=== PATIENT | male | born 1975 | race Caucasian/White ===

== ENCOUNTER 2021-11-06 09:46 | Emergency (ER) | payer MEDICARE, MEDICAID ==
[~2021-11-06] VITALS: Ht 177.8 cm; Wt 90.9 kg
[2021-11-06 10:45] LABS: GLUCOSE,POINT OF CARE 77 MG/DL (70-110)
[2021-11-06 11:55] LABS: BASOPHILS % (AUTO) 0.5 % (0.0-2.0); HEMATOCRIT 36.9 % (41-53); HEMOGLOBIN 12.3 g/dL (13.5-17.5); LYMPHOCYTES # (AUTO) 1.5 K/uL (1.0-4.8); LYMPHOCYTES % (AUTO) 11.2 % (22.0-44.0); MEAN CORPUSCULAR HEMOGLOBIN 29.2 pg (26.0-34.0); MEAN CORPUSCULAR HGB CONC 33.2 G/dL (31.0-37.0); MEAN CORPUSCULAR VOLUME 88 fL (80-100); MONOCYTES # (AUTO) 0.8 K/uL (0.1-1.0); NEUTROPHILS # (AUTO) 10.9 K/uL (1.8-7.7); NEUTROPHILS % (AUTO) 81.3 % (40.0-70.0); PLATELET COUNT (AUTO) 238 K/uL (150-450); RED CELL DISTRIBUTION WIDTH 13.9 % (11.5-14.5)
[2021-11-06 12:09] LABS: ANION GAP 11 mmol/L (8-16); CALCIUM, TOTAL 8.5 mg/dL (8.8-10.5); CARBON DIOXIDE 28 mmol/L (22-29); CHLORIDE 105 mmol/L (98-107); CREATININE 1.09 mg/dL (0.60-1.30); GLOMERULAR FILTR. RATE CALC > 60 mL/min (>60); GLUCOSE,RANDOM 75 mg/dL (70-110); POTASSIUM 3.8 mmol/L (3.5-5.1); SODIUM SERUM 144 mmol/L (136-145); UREA NITROGEN, BLOOD 5 mg/dL (7-18)
[2021-11-06 12:23] LABS: ALANINE AMINOTRANSFERASE 31 U/L (12-78); ALBUMIN 2.9 g/dL (3.4-5.0); ALKALINE PHOSPHATASE 108 U/L (46-116); ASPARTATE AMINOTRANSFERASE 25 U/L (15-37); BILIRUBIN,TOTAL 0.6 mg/dL (0.1-1.0); TOTAL PROTEIN, SERUM 6.6 g/dL (6.4-8.2)
[2021-11-06 15:15] VITALS: BP 116/75
== END 2021-11-06 15:52 | disposition home or self-care (01) ==
LOC: EMS 09:51
DX: G40.909 Epilepsy, unspecified, not intractable, without status epilepticus (principal); W13.3XXA Fall through floor, initial encounter; Y93.89 Activity, other specified; Y92.89 Other specified places as the place of occurrence of the external cause; Y99.8 Other external cause status
CPT/HCPCS: 99284; 70450; 80053; 82962; 85025; 36415; 72125; G0480

== ENCOUNTER 2024-09-17 18:32 | Emergency (ER) | payer MEDICAID, MEDICARE ==
[~2024-09-17] VITALS: Ht 177.8 cm; Wt 77.3 kg
[2024-09-17 19:47] VITALS: TEMP 98.4
[2024-09-17 20:40] LABS: BASOPHILS % (AUTO) 0.9 % (0.0-2.0); HEMATOCRIT 41.6 % (41-53); HEMOGLOBIN 13.8 g/dL (13.5-17.5); LYMPHOCYTES # (AUTO) 1.8 K/uL (1.0-4.8); LYMPHOCYTES % (AUTO) 18.3 % (22.0-44.0); MEAN CORPUSCULAR HEMOGLOBIN 29.1 pg (26.0-34.0); MEAN CORPUSCULAR HGB CONC 33.3 G/dL (31.0-37.0); MEAN CORPUSCULAR VOLUME 88 fL (80-100); MONOCYTES # (AUTO) 0.8 K/uL (0.1-1.0); MONOCYTES % (AUTO) 8.3 % (2.0-9.0); NEUTROPHILS % (AUTO) 71.5 % (40.0-70.0); PLATELET COUNT (AUTO) 315 K/uL (150-450); RED BLOOD CELL COUNT(AUTO) 4.75 MIL/uL (4.50-5.90); RED CELL DISTRIBUTION WIDTH 13.7 % (11.5-14.5); WHITE BLOOD COUNT (AUTO) 9.8 K/uL (4.5-11.0)
[2024-09-17 20:53] LABS: ANION GAP 5 mmol/L (8-16); CALCIUM, TOTAL 9.5 mg/dL (8.8-10.5); CARBON DIOXIDE 29 mmol/L (22-29); CHLORIDE 105 mmol/L (98-107); CREATININE 1.05 mg/dL (0.60-1.30); GLOMERULAR FILTR. RATE CALC > 60 mL/min (>60); GLUCOSE,RANDOM 81 mg/dL (70-110); POTASSIUM 5.6 mmol/L (3.5-5.1); SODIUM SERUM 139 mmol/L (136-145); UREA NITROGEN, BLOOD 12 mg/dL (7-18)
[2024-09-17] MEDS: LevETIRAcetam 750 MG in DEXTROSE 5%-WATER 100 ML IV ONE (21:12)
[2024-09-17] MEDS: SODIUM CHLORIDE 0.9% 1,000 ML IV ONE (21:12)
[2024-09-17] MEDS: MORPHINE SULFATE 2 MG/ML SYRINGE IVP ONE (22:04)
[2024-09-17 23:07] VITALS: BP 121/69; PULSE 77; RESP 20; O2SAT 100
[2024-09-17 23:16] LABS: APPEARANCE,URINE CLEAR (CLEAR); BILIRUBIN,URINE NEGATIVE (NEGATIVE); COLOR,URINE YELLOW (YELLOW); GLUCOSE, URINE (UA) NEGATIVE (NEGATIVE); KETONES,URINE NEGATIVE (NEGATIVE); LEUKOCYTE ESTERASE ,URINE NEGATIVE (NEGATIVE); NITRATE,URINE NEGATIVE (NEGATIVE); OCCULT BLOOD,URINE NEGATIVE (NEGATIVE); PH,URINE 7.5 (5.0-8.0); PH,URINE DRUG SCREEN 7.5 (5.0-8.0); PROTEIN,URINE TRACE mg/dL (NEGATIVE); SPECIFIC GRAVITIY, URINE 1.028 (1.003-1.030); UROBILINOGEN,URINE <=1.0 mg/dL (<=1.0)
[2024-09-17 23:22] LABS: ALCOHOL, URINE DRUG SCREEN NEGATIVE (NEGATIVE); AMPHET/METH SCREEN,URINE NEGATIVE (NEGATIVE); BARBITURATE SCREEN, URINE NEGATIVE (NEGATIVE); BENZODIAZEPINES SCREEN,URINE NEGATIVE (NEGATIVE); CANNABINOID SCREEN,URINE POSITIVE (NEGATIVE); COCAINE SCREEN,URINE NEGATIVE (NEGATIVE); METHADONE SCREEN, URINE NEGATIVE (NEGATIVE); OPIATE SCREEN,URINE POSITIVE (NEGATIVE); PHENCYCLIDINE SCREEN,URINE NEGATIVE (NEGATIVE)
== END 2024-09-18 00:41 | disposition home or self-care (01) ==
LOC: EMS 18:32
DX: G40.909 Epilepsy, unspecified, not intractable, without status epilepticus (principal)
CPT/HCPCS: 99284; 96374; 70450; 96361; 96375; 80048; 81003; 85025; 36415; 80307; J0712; G0480; J2270; J7060; J7030

== ENCOUNTER 2024-12-04 17:33 | Inpatient (IN) | payer MEDICARE ==
[~2024-12-04] VITALS: Ht 177.8 cm; Wt 77.4 kg
[2024-12-04] MEDS: LevETIRAcetam 1,000 MG in DEXTROSE 5%-WATER 100 ML IV ONE (17:51)
[2024-12-04 18:05] LABS: PLATELET COUNT (AUTO) 353 K/uL (150-450); RED BLOOD CELL COUNT(AUTO) 4.55 MIL/uL (4.50-5.90); RED CELL DISTRIBUTION WIDTH 16.6 % (11.5-14.5); WHITE BLOOD COUNT (AUTO) 24.4 K/uL (4.5-11.0)
[2024-12-04 18:23] LABS: CALCIUM, TOTAL 9.7 mg/dL (8.8-10.5); CREATININE 1.90 mg/dL (0.60-1.30); GLOMERULAR FILTR. RATE CALC 38 mL/min (>60); GLUCOSE,RANDOM 108 mg/dL (70-110); SODIUM SERUM 146 mmol/L (136-145); UREA NITROGEN, BLOOD 20 mg/dL (7-18)
[2024-12-04 18:27] LABS: ASPARTATE AMINOTRANSFERASE 70 U/L (15-37); TOTAL PROTEIN, SERUM 7.7 g/dL (6.4-8.2)
[2024-12-04] MEDS: SODIUM CHLORIDE 0.9% 2,000 ML IV ONE (18:28)
[2024-12-04 18:30] LABS: ALCOHOL, BLOOD (SERUM) < 3 mg/dL (0-10); CREATINE KINASE, TOTAL ONLY 1851 U/L (39-308)
[2024-12-04 18:37] LABS: TROPONIN I-HIGH SENSITIVITY 147 ng/L (<76)
[2024-12-04 18:44] LABS: BAND NEUTROPHILS % (MANUAL) 5 % (0-5); LYMPHOCYTES % (MANUAL) 5 % (22-44); MONOCYTES % (MANUAL) 8 % (2-9); SEGMENTED NEUTROPHILS % 82 % (40-70)
[2024-12-04] MEDS ORDERED: ONDANSETRON HCL 4 MG/2 ML VIAL IVP PRN (19:15)
[2024-12-04] MEDS: 1: MAGNESIUM SULFATE 2 GM, MVI, ADULT NO.1 WITH VIT K 10 ML, THIAMINE 100 MG, FOLIC ACID IV SCH (20:06)
[2024-12-04] MEDS: AMPICILLIN SODIUM/SULBACTAM NA 3 GM in SODIUM CHLORIDE 0.9% 100 ML IV ONE (20:07)
[2024-12-04] MEDS: DOCUSATE SODIUM 100 MG CAPSULE PO SCH (21:00)
[2024-12-04 21:10] LABS: TROPONIN I-HIGH SENSITIVITY 173 ng/L (<76)
[2024-12-04 21:22] VITALS: BP 143/89; PULSE 90; RESP 20; TEMP 99.7; O2SAT 99
[2024-12-05] MEDS: AMPICILLIN SODIUM/SULBACTAM NA 3 GM in SODIUM CHLORIDE 0.9% 100 ML IV SCH (01:39)
[2024-12-05] MEDS: HEPARIN SODIUM,PORCINE 5,000 UNITS/ML VIAL SQ SCH (01:39)
[2024-12-05 04:34] VITALS: BP 139/80; PULSE 86; RESP 18; TEMP 98.2; O2SAT 97
[2024-12-05 05:54] LABS: PLATELET COUNT (AUTO) 326 K/uL (150-450); RED BLOOD CELL COUNT(AUTO) 4.20 MIL/uL (4.50-5.90); RED CELL DISTRIBUTION WIDTH 16.9 % (11.5-14.5); WHITE BLOOD COUNT (AUTO) 15.4 K/uL (4.5-11.0)
[2024-12-05] MEDS: LevETIRAcetam 1,000 MG in DEXTROSE 5%-WATER 100 ML IV SCH (06:19)
[2024-12-05 06:55] LABS: CALCIUM, TOTAL 8.9 mg/dL (8.8-10.5); CREATININE 1.39 mg/dL (0.60-1.30); GLOMERULAR FILTR. RATE CALC 55 mL/min (>60); GLUCOSE,RANDOM 100 mg/dL (70-110); SODIUM SERUM 145 mmol/L (136-145); UREA NITROGEN, BLOOD 19 mg/dL (7-18)
[2024-12-05 06:59] LABS: TROPONIN I-HIGH SENSITIVITY 103 ng/L (<76)
[2024-12-05 07:41] VITALS: BP 148/87; RESP 18; O2SAT 96
[2024-12-05] MEDS: FAMOTIDINE 20 MG TABLET PO SCH (07:57)
[2024-12-05 11:46] VITALS: BP 135/91; PULSE 85; RESP 18; TEMP 98.2; O2SAT 96
[2024-12-05 16:04] VITALS: BP 134/79; PULSE 78; RESP 18; TEMP 98.4; O2SAT 97
[2024-12-05] MEDS: LORazepam 2 MG/ML VIAL IVP PRN (16:16)
[2024-12-05 20:14] VITALS: BP 135/68; PULSE 74; RESP 18; TEMP 98.1; O2SAT 98
[2024-12-05] MEDS: VANCOMYCIN 1.75GM/WATER(PEG) 350 ML IV ONE (22:05)
[2024-12-06 00:29] VITALS: BP 121/82; PULSE 63; RESP 17; TEMP 98.1; O2SAT 94
[2024-12-06 04:48] VITALS: BP 140/91; PULSE 87; RESP 17; TEMP 98.8; O2SAT 98
[2024-12-06 06:44] LABS: CALCIUM, TOTAL 8.4 mg/dL (8.8-10.5); CREATININE 1.08 mg/dL (0.60-1.30); GLOMERULAR FILTR. RATE CALC > 60 mL/min (>60); GLUCOSE,RANDOM 87 mg/dL (70-110); SODIUM SERUM 143 mmol/L (136-145); UREA NITROGEN, BLOOD 13 mg/dL (7-18)
[2024-12-06 08:00] VITALS: BP 133/87; PULSE 80; RESP 18; TEMP 99.7; O2SAT 98
[2024-12-06] MEDS: ACETAMINOPHEN 325 MG TABLET PO PRN (08:29)
[2024-12-06] MEDS: VANCOMYCIN 1GM/WATER(PEG/NADA) 200 ML IV SCH (10:16)
[2024-12-06 12:00] VITALS: BP 135/88; PULSE 91; RESP 18; TEMP 98.5; O2SAT 97
[2024-12-06] MEDS: RINGERS SOLUTION,LACTATED 1,000 ML IV SCH (12:30)
[2024-12-06] MEDS ORDERED: SODIUM CHLORIDE 0.9% 500 ML IV ONE (13:46)
[2024-12-06 15:10] VITALS: BP 169/97; PULSE 89; RESP 20; TEMP 98.7; O2SAT 99
[2024-12-06] MEDS: LevETIRAcetam 1,500 MG in DEXTROSE 5%-WATER 100 ML IV SCH (17:45)
[2024-12-06] MEDS: HYDROCODONE/ACETAMINOPHEN 5-325 MG TABLET PO PRN (18:17)
[2024-12-06 20:00] VITALS: BP 136/94; PULSE 76; RESP 18; TEMP 98.6; O2SAT 97
[2024-12-07] VITALS: BP 136/97; PULSE 70; RESP 19; TEMP 98.1; O2SAT 99
[2024-12-07 04:32] VITALS: BP 146/94; PULSE 82; RESP 18; TEMP 97.9; O2SAT 96
[2024-12-07] MEDS: LevETIRAcetam 1,000 MG in DEXTROSE 5%-WATER 100 ML IV SCH (06:00)
[2024-12-07 06:40] LABS: PLATELET COUNT (AUTO) 279 K/uL (150-450); RED BLOOD CELL COUNT(AUTO) 3.92 MIL/uL (4.50-5.90); RED CELL DISTRIBUTION WIDTH 15.9 % (11.5-14.5); WHITE BLOOD COUNT (AUTO) 6.4 K/uL (4.5-11.0)
[2024-12-07 06:44] LABS: CALCIUM, TOTAL 8.8 mg/dL (8.8-10.5); CREATININE 1.09 mg/dL (0.60-1.30); GLOMERULAR FILTR. RATE CALC > 60 mL/min (>60); GLUCOSE,RANDOM 92 mg/dL (70-110); SODIUM SERUM 141 mmol/L (136-145); UREA NITROGEN, BLOOD 7 mg/dL (7-18)
[2024-12-07 07:22] VITALS: BP 144/94; PULSE 67; RESP 18; TEMP 98.2; O2SAT 99
[2024-12-07] MEDS: VANCOMYCIN 1.25 GM/WATER(PEG) 250 ML IV SCH (08:00)
[2024-12-07] MEDS ORDERED: POTASSIUM CHL 10 MEQ/WATER 50 ML IV PRN (10:15)
[2024-12-07] MEDS: POTASSIUM CHLORIDE 20 MEQ ER TABLET PO PRN (10:49)
[2024-12-07 12:30] VITALS: BP 120/96; PULSE 67; RESP 15; TEMP 98.4; O2SAT 98
[2024-12-07 15:00] VITALS: BP 131/94; PULSE 69; RESP 16; TEMP 98.7; O2SAT 97
[2024-12-07 20:28] VITALS: BP 141/93; PULSE 71; RESP 18; TEMP 98.8; O2SAT 98
[2024-12-07] MEDS ORDERED: SODIUM CHLORIDE 0.9% 1,000 ML ONE (23:45)
[2024-12-07] MEDS ORDERED: SODIUM CHLORIDE 0.9% 500 ML IV ONE (23:46)
[2024-12-07] MEDS ORDERED: SODIUM CHLORIDE 0.9% 250 ML IV ONE (23:47)
[2024-12-08] VITALS (7 sets, daily range): BP systolic 110–129; BP diastolic 64–86; PULSE 57–71; RESP 18; TEMP 97.3–98.4; O2SAT 97–99
[2024-12-08 06:56] LABS: CALCIUM, TOTAL 9.0 mg/dL (8.8-10.5); CREATININE 1.09 mg/dL (0.60-1.30); GLOMERULAR FILTR. RATE CALC > 60 mL/min (>60); GLUCOSE,RANDOM 91 mg/dL (70-110); SODIUM SERUM 143 mmol/L (136-145); UREA NITROGEN, BLOOD 6 mg/dL (7-18)
[2024-12-08 17:26] LABS: GLUCOMETER DEV NAME(LOC) 5S.1D; GLUCOSE,POINT OF CARE 135 MG/DL (70-110)
[2024-12-09 07:43] LABS: PLATELET COUNT (AUTO) 296 K/uL (150-450); RED BLOOD CELL COUNT(AUTO) 3.96 MIL/uL (4.50-5.90); RED CELL DISTRIBUTION WIDTH 16.1 % (11.5-14.5); WHITE BLOOD COUNT (AUTO) 7.2 K/uL (4.5-11.0)
[2024-12-09 07:48] VITALS: BP 110/75; PULSE 58; RESP 18; TEMP 98; O2SAT 98
[2024-12-09 07:53] LABS: CALCIUM, TOTAL 8.8 mg/dL (8.8-10.5); CREATININE 1.23 mg/dL (0.60-1.30); GLOMERULAR FILTR. RATE CALC > 60 mL/min (>60); GLUCOSE,RANDOM 86 mg/dL (70-110); SODIUM SERUM 143 mmol/L (136-145); UREA NITROGEN, BLOOD 8 mg/dL (7-18)
[2024-12-09] MEDS ORDERED: LEVE-71 PO (10:09)
[2024-12-09] MEDS ORDERED: LAMO-24 PO (10:09)
[2024-12-09] MEDS ORDERED: SULF-261 PO (10:09)
[2024-12-09] MEDS ORDERED: AMOX-457 PO (10:09)
[2024-12-09 11:53] VITALS: BP 123/88; PULSE 69; RESP 18; TEMP 97.9; O2SAT 97
== END 2024-12-09 14:50 | disposition home or self-care (01) | DRG 101 ==
LOC: EMS 17:33 → EDH 19:14 → 5S 20:52
PROVIDERS: ADMIT Internal Medicine; ATTEND Internal Medicine
PROC: 05HC33Z Insertion of Infusion Device into Left Basilic Vein, Percutaneous Approach (ICD-10-PCS; principal; 2024-12-07)
PROC: B54NZZA Ultrasonography of Left Upper Extremity Veins, Guidance (ICD-10-PCS; 2024-12-07)
DX: G40.802 Other epilepsy, not intractable, without status epilepticus (principal); M62.82 Rhabdomyolysis; R65.10 Systemic inflammatory response syndrome (SIRS) of non-infectious origin without acute organ dysfunction; N17.9 Acute kidney failure, unspecified; F19.10 Other psychoactive substance abuse, uncomplicated; K11.20 Sialoadenitis, unspecified; K11.1 Hypertrophy of salivary gland; R41.82 Altered mental status, unspecified; X58.XXXA Exposure to other specified factors, initial encounter; Y93.89 Activity, other specified; Y92.89 Other specified places as the place of occurrence of the external cause; Y99.8 Other external cause status
CPT/HCPCS: 36569; 70450; 70486; 71045; 72125; 74019; 76937; 80048; 80076; 80202; 82550; 82962; 83735; 83880; 84132; 84484; 85025; 85610; 85730; 87040; 92610; 93005; 96361; 96365; 99285; G0480; J0295; J0712; J1630; J1644; J2060; J3411; J3475; J3490; J7030; J7040; J7050; J7060; J7120; 36415-L1; 36415-TC

== ENCOUNTER 2025-03-02 14:29 | Emergency (ER) | payer MEDICARE ==
[~2025-03-02] VITALS: Ht 177.8 cm; Wt 77.4 kg
[~2025-03-02 14:29] MED LIST: AMOX-457 PO; LAMO-24 PO; LEVE-71 PO; SULF1TAB94 PO
[2025-03-02 14:45] VITALS: TEMP 97.7
[2025-03-02] MEDS ORDERED: APIX5TAB PO (15:08)
[2025-03-02] MEDS ORDERED: TAMS0.4C94 PO (15:08)
[2025-03-02] MEDS ORDERED: DULO60CA73 PO (15:08)
[2025-03-02] MEDS ORDERED: LEVE100023 PO (15:08)
[2025-03-02 15:29] LABS: PLATELET COUNT (AUTO) 310 K/uL (150-450); RED BLOOD CELL COUNT(AUTO) 5.33 MIL/uL (4.50-5.90); RED CELL DISTRIBUTION WIDTH 14.7 % (11.5-14.5); WHITE BLOOD COUNT (AUTO) 10.4 K/uL (4.5-11.0)
[2025-03-02 15:36] LABS: CALCIUM, TOTAL 9.3 mg/dL (8.8-10.5); CREATININE 1.16 mg/dL (0.60-1.30); GLOMERULAR FILTR. RATE CALC > 60 mL/min (>60); GLUCOSE,RANDOM 77 mg/dL (70-110); SODIUM SERUM 145 mmol/L (136-145); UREA NITROGEN, BLOOD 14 mg/dL (7-18)
[2025-03-02 16:00] VITALS: BP 140/80; PULSE 78; RESP 17; O2SAT 99
[2025-03-02] MEDS: LORazepam 2 MG/ML VIAL IVP ONE (16:11)
[2025-03-02] MEDS: LevETIRAcetam 1,000 MG in DEXTROSE 5%-WATER 100 ML IV ONE (16:12)
[2025-03-02] MEDS: POTASSIUM CHLORIDE 20 MEQ ER TABLET PO ONE (16:46)
[2025-03-15] MEDS ORDERED: ACET-66 PO (14:53)
[2025-03-15] MEDS ORDERED: IBUP-1554 PO (14:53)
== END 2025-03-02 18:37 | disposition short-term general hospital (02) ==
LOC: EMS 14:29
DX: R41.82 Altered mental status, unspecified (principal); E87.6 Hypokalemia; R56.9 Unspecified convulsions; F19.11 Other psychoactive substance abuse, in remission; Z79.01 Long term (current) use of anticoagulants; Z79.899 Other long term (current) drug therapy
CPT/HCPCS: 99291; 96374; 96375; 80048; 85025; 36415; J0712; G0480; J2060; J7060